=== PATIENT | male | born 2000 | race Caucasian/White ===

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

== ENCOUNTER 2022-05-09 15:49 | Emergency (ER) | payer OTHER, SELFPAY ==
--- NOTE | 2022-05-09 15:56 | ED.GENADULT ---
HPI - General Adult General Chief complaint: Chest Pain Stated complaint: Chest Pain Time Seen by Provider: 05/09/22 16:00 Source: patient, RN notes reviewed and old records reviewed Mode of arrival: ambulatory Limitations: no limitations History of Present Illness HPI narrative: 21-year-old male presents to the [facility] with intermittent traveling chest pain for the last week. Ibuprofen makes it better. denies any radiation pain. No nausea or vomiting. Denies pain pain is worse with movement times. Pain is reproducible with palpation the left sternal border Onset (ago): week(s) (1) Related Data Home Medications Medication Instructions Recorded Confirmed ibuprofen 200 mg tablet 200 mg PO Q6H PRN Pain 09/20/21 05/09/22 Allergies Allergy/AdvReac Type Severity Reaction Status Date / Time amoxicillin [From Augmentin] Allergy Hives Verified 05/09/22 16:06 clavulanic acid Allergy Hives Verified 05/09/22 16:06 [From Augmentin] Review of Systems Review of Systems: All systems reviewed & are unremarkable except as noted in HPI and below Constitutional: Constitutional: Reports no additional constitutional complaints Eyes: Eyes: Reports no additional eye complaints ENT: Reports system reviewed and no additional complaints, except as documented Cardiovascular: Cardiovascular: Reports as per HPI, Reports chest pain ( chest wall), Denies rapid heart rate, Denies radiating jaw, neck or arm pain, Denies dyspnea and Denies slow heart rate Respiratory: Respiratory: Reports no additional respiratory complaints, Denies chest congestion, Denies cough and Denies dyspnea Gastrointestinal: Gastrointestinal: Reports no additional gastrointestinal complaints, Denies abdominal pain, Denies nausea and Denies vomiting Musculoskeletal: Musculoskeletal: Reports no additional musculoskeletal complaints Integumentary/Breasts: Skin/Breast: Reports system reviewed and no additional complaints, except as docu Neurologic: Reports system reviewed and no additional complaints, except as documented Psychiatric: Psychiatric: Reports no additional psychiatric complaints Allergic/Immunologic: Allergic/Immunologic: Reports no additional allergic/immunologic complaints PMFSH Past Medical History Medical History Anxiety Anxiety Depressed GERD (gastroesophageal reflux disease) Surgical History Surgical History History of tonsillectomy Family History Family History Father Alcohol abuse Depression Anxiety Mother Alcohol abuse Depression Anxiety Sibling Asthma Anxiety Depression Grandparent Diabetes mellitus Heart disease Social History Social History Smoking status: Never smoker Alcohol intake: current Drinks per week: 4 Alcohol use details: shots a week Substance use: current Substance use type: marijuana Living arrangements: with family Occupation/Education: occupation Additional occupation/education comments: [employer] Gender identity (if verbalized by the patient): Male Sexual Orientation (if Verbalized by the Patient): Straight or Heterosexual Agree to blood products: Yes Comments At the time of my signature, I reviewed and agree with the nursing past medical, surgical, social, and family history. There is no relevant family history pertinent to the patient complaint. Exam Const: General: cooperative, healthy appearing, comfortable, no acute distress, well developed, alert and well nourished Nutritional Appearance: well nourished Orientation/consciousness: patient oriented x3 Limitations: no limitations HENMT: Head: normal to inspection Ears: hearing grossly normal bilaterally and external ears normal Face/Nose/Sinus: Normal external nose present, Normal nares pr
[2022-05-09 15:57] VITALS: BP 149/70; PULSE 81; RESP 16; TEMP 36.7; O2SAT 100
== END 2022-05-09 16:15 | disposition home or self-care (01) ==
PROVIDERS: Emergency Provider Nurse Practitioner; PCP Family Medicine
DX: M94.0 Chondrocostal junction syndrome [Tietze] (principal); F12.90 Cannabis use, unspecified, uncomplicated; K21.9 Gastro-esophageal reflux disease without esophagitis
CPT/HCPCS: 99213; G0463

== ENCOUNTER 2022-12-05 14:53 | Emergency (ER) | payer OTHER, SELFPAY ==
[2022-12-05 15:06] VITALS: BP 154/87; PULSE 114; RESP 19; TEMP 37.1; O2SAT 100
--- NOTE | 2022-12-05 15:37 | ED.DENTAL ---
HPI - Dental/Oral General Chief complaint: Dental/Oral Stated complaint: dental pain Time Seen by Provider: 12/05/22 15:08 History of Present Illness HPI Narrative: Patient is a 22-year-old male who presents ER with dental abscess. Developing last couple days. Ruptured yesterday and had bad taste in his mouth. Has been treating pain with marijuana today and has become more anxious. No facial swelling. No fevers or chills or sweats. No difficulty breathing or swallowing. Still has tenderness to his right upper mouth near tooth #4. Related Data Home Medications Medication Instructions Recorded Confirmed ibuprofen 200 mg tablet 200 mg PO Q6H PRN Pain 09/20/21 05/09/22 Allergies Allergy/AdvReac Type Severity Reaction Status Date / Time amoxicillin [From Augmentin] Allergy Hives Verified 12/05/22 15:08 clavulanic acid Allergy Hives Verified 12/05/22 15:08 [From Augmentin] Review of Systems Constitutional: Constitutional: Denies chills and Denies fever(s) ENT: Denies dysphagia and Denies sore throat Comments: + Dental pain PMFSH Past Medical History Medical History Anxiety Anxiety Depressed GERD (gastroesophageal reflux disease) Surgical History Surgical History History of tonsillectomy Family History Family History Father Alcohol abuse Depression Anxiety Mother Alcohol abuse Depression Anxiety Sibling Asthma Anxiety Depression Grandparent Diabetes mellitus Heart disease Social History Social History Smoking status: Never smoker Alcohol intake: current Drinks per week: 4 Alcohol use details: shots a week Substance use: current Substance use type: marijuana Living arrangements: with family Occupation/Education: occupation Additional occupation/education comments: [employer] Gender identity (if verbalized by the patient): Male Sexual Orientation (if Verbalized by the Patient): Straight or Heterosexual Agree to blood products: Yes Exam Narrative: GENERAL: Well-appearing, well-nourished, and in no acute distress. HEAD: Normocephalic, atraumatic. ENT: Mucous membranes moist. No fluctuant abscess in mouth but tenderness and fullness noted near tooth #4 normal posterior oropharynx. HEART: Tachycardic and regular. Normal peripheral pulses. EXTREMITIES: Normal range of motion. No edema. NEURO: Alert and oriented x3. PSYCH: Normal mood and affect. Course Course Emergency Course: Patient with Augmentin allergy, will place on clindamycin. Recommend follow-up with dentist. Vital Signs Vital signs: Vital Signs Temperature 98.8 F 12/05/22 15:06 Pulse Rate 114 H 12/05/22 15:06 Respiratory Rate 19 12/05/22 15:06 Blood Pressure 154/87 H 12/05/22 15:06 Pulse Oximetry 100 12/05/22 15:06 Temperature 98.8 F 12/05/22 15:06 Pulse Rate 114 H 12/05/22 15:06 Respiratory Rate 19 12/05/22 15:06 Blood Pressure 154/87 H 12/05/22 15:06 Pulse Oximetry 100 12/05/22 15:06 Discharge Plan Discharge Clinical Impression: Abscess, dental Patient Disposition: Home, Self-Care Condition: Stable Instructions: Antibiotic Form, Dental Abscess (ED) Additional Instructions: Return the ER if you have fever over 100.4 ?F, you cannot breathe, cannot swallow, you cannot keep down food/water/medication, you have additional concerns. Follow up with a dentist. Take tylenol or ibuprofen for pain. Prescriptions: New clindamycin HCl 150 mg capsule 450 mg PO Q6H 7 Days Qty: 84 0RF No Action ibuprofen 600 mg tablet 600 mg PO TID PRN (Reason: fever or pain) Qty: 30 0RF ibuprofen 200 mg tablet 200 mg PO Q6H PRN (Reason: Pain) Follow-up/Referrals: Rosmery Wang MD [Primary Care Provid
== END 2022-12-05 16:17 | disposition home or self-care (01) ==
PROVIDERS: Emergency Provider Emergency Medicine; PCP Family Medicine
DX: K04.7 Periapical abscess without sinus (principal); F41.9 Anxiety disorder, unspecified; F32.A Depression, unspecified; K21.9 Gastro-esophageal reflux disease without esophagitis
CPT/HCPCS: 99283

== ENCOUNTER 2023-01-30 17:50 | Emergency (ER) | payer OTHER, SELFPAY ==
--- NOTE | ~2023-01-30 | CT_ITS ---
EXAMINATION: CT abdomen pelvis w con DATE: 01/31/2023 00:46 INDICATION: Left lower quadrant and periumbilical abdominal pain. TECHNIQUE: Computed tomography (CT) of the abdomen and pelvis was performed with 100 mL Omnipaque 350 intravenous contrast. Automated exposure control and iterative reconstruction technique were employe d. The dose-length product was 635.31 mGy-cm. COMPARISON: None. FINDINGS: The visualized portions of the lung bases are clear without pneumonia or pleural effusion. The heart size is normal. No pericardial effusion. The liver, spleen, gallbladder, pancreas, adrenal glands, and kidneys are normal. The appendix measures 8 mm in diameter at its base and 5 mm at its ti p. No adjacent fat stranding. There are no pathologically enlarged lymph nodes. There is no free intr aperitoneal fluid. There is mild lumbar spondylosis. IMPRESSION: 1. Appendiceal diameter of 8 mm, which is indeterminate for appendicitis. Reviewed, dictated and finalized at location E.
[2023-01-30 18:05] VITALS: BP 129/85; PULSE 74; RESP 16; TEMP 36.5; O2SAT 98
--- NOTE | 2023-01-30 18:08 | ED.GENADULT ---
HPI - General Adult General Chief complaint: Abdominal Pain <Colleen Klein CLIENT CARE CONSULTANT - Last Filed: 01/30/23 18:10> Stated complaint: diffuse abd pain <Colleen Gonsales August CLIENT CARE CONSULTANT - Last Filed: 01/30/23 18:10> Time Seen by Provider: 01/30/23 23:42 <Colleen Gonsales August CLIENT CARE CONSULTANT - Last Filed: 01/30/23 18:10> History of Present Illness HPI narrative: Silverio Wood is a 22 y/o male without any known PMhx who presents with complaints of having right lower abdominal pain yesterday and it improved with Pepto and pantoprazole. He got up today and started to have mid to left lower abdominal pain that seems to have become much worse today. Denies any nausea/vomiting/ able to eat and drink well today/ Last BM was 4 hours ago and was diarrhea. Denies fever/chills. <Colleen Gonsales August, CLIENT CARE CONSULTANT - Last Filed: 01/30/23 18:10> 22-year-old male reports for evaluation for abdominal pain that started yesterday.? Patient states he developed right-sided abdominal pain which resolved after taking Pepcid and Pepto-Bismol.? States today around 12:00, the pain returned but is not as periumbilical region and left lower quadrant.? He reports 3 episodes of soft stools today.? Denies fever, nausea or vomiting, chest pain or shortness of breath, dysuria or hematuria, flank pain.? Denies recent surgeries or hospitalizations, travel or camping.? He does state he was on clindamycin approximately 1 to 2 months ago for dental infection. <Abida Kingsley PA-C - Last Filed: 01/31/23 02:55> Related Data Home medications: Home Medications Medication Instructions Recorded Confirmed ibuprofen 200 mg tablet 200 mg PO Q6H PRN Pain 09/20/21 05/09/22 <Colleen Klein, CLIENT CARE CONSULTANT - Last Filed: 01/30/23 18:10> Allergies/adverse reactions: Allergies Allergy/AdvReac Type Severity Reaction Status Date / Time amoxicillin [From Augmentin] Allergy Hives Verified 12/05/22 15:08 clavulanic acid Allergy Hives Verified 12/05/22 15:08 [From Augmentin] <Colleen Klein CLIENT CARE CONSULTANT - Last Filed: 01/30/23 18:10> Review of Systems Review of Systems: CONSTITUTIONAL: Denies fever, chills EYES: Denies visual changes, redness, or discharge. ENT: Denies rhinorrhea, congestion, sore throat, or otalgia. CARDIOVASCULAR: Denies chest pain, palpitations, or edema. RESPIRATORY: Denies cough or dyspnea. GASTROINTESTINAL: See HPI GENITOURINARY: Denies dysuria or hematuria. SKIN: Denies rash or itching. MUSCULOSKELETAL: Denies back pain, joint pain, or myalgia. NEUROLOGIC: Denies headache, numbness, dizziness, or weakness. PSYCHIATRIC: Denies anxiety or depression. <Abida Kingsley PA-C - Last Filed: 01/31/23 02:55> [facility] Past Medical History Medical History: Medical History Anxiety Anxiety Depressed GERD (gastroesophageal reflux disease) <Colleen Klein, CLIENT CARE CONSULTANT - Last Filed: 01/30/23 18:10> Surgical History Surgical History: Surgical History History of tonsillectomy <Colleen Klein CLIENT CARE CONSULTANT - Last Filed: 01/30/23 18:10> Family History Family History: Family History Father Alcohol abuse Depression Anxiety Mother Alcohol abuse Depression Anxiety Sibling Asthma Anxiety Depression Grandparent Diabetes mellitus Heart disease <Colleen Klein, CLIENT CARE CONSULTANT - Last Filed: 01/30/23 18:10> Social History Social History: Social History Smoking status: Never smoker Alcohol intake: current Drinks per week: 4 Alcohol use details: shots a week Substance use: current Substance use type: marijuana Living arrangements: with family Occupation/Education: occupation Additional occupation/education comments: [employer] Gender identity (if verbalized by the patient): Male Sexual Orientation (if Verbalized by the Patient): Straight or
[2023-01-30 18:27] LABS: Basophils Absolute Auto 0.1 K/mm3 (0.0-0.1); Basophils Percent Auto 0.6 % (0.2-1.2); Eosinophils Absolute Auto 0.3 K/mm3 (0-0.3); Eosinophils Percent Auto 3.4 % (0-4.4); Hematocrit 48.7 % (42.0-52.0); Hemoglobin 16.9 g/dL (14.0-18.0); Immature Granulocyte Absolute 0.03 K/mm3 (0.00-0.031); Immature Granulocyte Percent A 0.4 % (0-0.5); Lymphocytes Absolute Auto 1.49 K/mm3 (0.9-3.2); Lymphocytes Percent Auto 18.2 % (18.3-44.2); Mean Corpuscular HGB Conc 34.7 g/dl (32-36); Mean Corpuscular Hemoglobin 29.4 pg (26-34); Mean Corpuscular Volume 84.8 fl (80-100); Mean Platelet Volume 9.4 fl (7.4-10.4); Monocytes Absolute Auto 0.7 K/mm3 (0.1-0.6); Monocytes Percent Auto 8.4 % (2.6-8.5); Neutrophils Absolute Auto 5.6 K/mm3 (1.3-6.7); Platelet Count Result 286 k/mm3 (150-375); Red Blood Count 5.74 M/mm3 (4.6-6.20); Red Cell Distribution Width 11.9 % (11.5-14.5); White Blood Count 8.2 K/mm3 (4.5-10.0)
[2023-01-30 18:39] LABS: Alanine Aminotransferase 30 U/L (6-50); Albumin Level 5.1 g/dL (3.5-5.1); Alkaline Phosphatase 73 U/L (38-126); Anion Gap 7 mmol/L (8-16); Aspartate Amino Transferase 29 U/L (17-59); Bilirubin,Total 0.9 mg/dL (0.2-1.3); Blood Urea Nitrogen 10 mg/dL (9-20); Calcium 9.9 mg/dL (8.4-10.2); Carbon Dioxide 29 mmol/L (22-30); Chloride 103 mmol/L (98-107); Estimated CRCL calculation 167 ml/min; Estimated Glomerular Filt Rate > 60; Glucose 94 mg/dL (65-110); Potassium 3.8 mmol/L (3.4-5.0); Sodium 139 mmol/L (137-145)
[2023-01-30 23:49] VITALS: BP 148/86; PULSE 76; RESP 16; O2SAT 100
--- NOTE | 2023-01-30 23:58 | ED.ABDPAIN ---
HPI - Abdominal Pain General Chief Complaint: Abdominal Pain Stated Complaint: diffuse abd pain Time Seen by Provider: 01/30/23 23:42 History of Present Illness HPI narrative: 22-year-old male reports for evaluation for abdominal pain that started yesterday. Patient states he developed right-sided abdominal pain which resolved after taking Pepcid and Pepto-Bismol. States today around 12:00, the pain returned but is not as periumbilical region and left lower quadrant. He reports 3 episodes of soft stools today. Denies fever, nausea or vomiting, chest pain or shortness of breath, dysuria or hematuria, flank pain. Denies recent surgeries or hospitalizations, travel or camping. He does state he was on clindamycin approximately 1 to 2 months ago for dental infection. Related Data Home Medications Medication Instructions Recorded Confirmed ibuprofen 200 mg tablet 200 mg PO Q6H PRN Pain 09/20/21 05/09/22 Allergies Allergy/AdvReac Type Severity Reaction Status Date / Time amoxicillin [From Augmentin] Allergy Hives Verified 12/05/22 15:08 clavulanic acid Allergy Hives Verified 12/05/22 15:08 [From Augmentin] Review of Systems Review of Systems: CONSTITUTIONAL: Denies fever, chills EYES: Denies visual changes, redness, or discharge. ENT: Denies rhinorrhea, congestion, sore throat, or otalgia. CARDIOVASCULAR: Denies chest pain, palpitations, or edema. RESPIRATORY: Denies cough or dyspnea. GASTROINTESTINAL: See HPI GENITOURINARY: Denies dysuria or hematuria. SKIN: Denies rash or itching. MUSCULOSKELETAL: Denies back pain, joint pain, or myalgia. NEUROLOGIC: Denies headache, numbness, dizziness, or weakness. PSYCHIATRIC: Denies anxiety or depression. [facility] Past Medical History Medical History Anxiety Anxiety Depressed GERD (gastroesophageal reflux disease) Surgical History Surgical History History of tonsillectomy Family History Family History Father Alcohol abuse Depression Anxiety Mother Alcohol abuse Depression Anxiety Sibling Asthma Anxiety Depression Grandparent Diabetes mellitus Heart disease Social History Social History Smoking status: Never smoker Alcohol intake: current Drinks per week: 4 Alcohol use details: shots a week Substance use: current Substance use type: marijuana Living arrangements: with family Occupation/Education: occupation Additional occupation/education comments: [employer] Gender identity (if verbalized by the patient): Male Sexual Orientation (if Verbalized by the Patient): Straight or Heterosexual Agree to blood products: Yes Exam Narrative: GENERAL: Well-appearing, in no acute distress. Patient resting comfortably in exam bed. He is pleasant and conversational. HEAD: Normocephalic EYES: PERRLA ENT: Nares clear. Mucous membranes moist. Oropharynx without tonsillar hypertrophy exudate or other lesions. NECK: Supple. CHEST: No respiratory distress. Clear to auscultation, no adventitious breath sounds. HEART: Regular rate and rhythm. No murmur heard. Normal peripheral pulses. ABDOMEN: Normal active bowel sounds. Abdomen soft with tenderness in the periumbilical region and left lower quadrant. No rebound, guarding or rigidity. No overlying skin changes. No CVA tenderness. EXTREMITIES: Normal range of motion. No edema. SKIN: Warm, dry, no rash. NEURO: No focal deficits. Alert and oriented x3. PSYCH: Normal mood and affect. Course Vital Signs Vital signs: Vital Signs Temperature 97.7 F 01/30/23 18:05 Pulse Rate 74 01/30/23 18:05 Respiratory Rate 16 01/30/23 18:05 Blood Pressure 129/85 01/30/23 18:05 Pulse Oximetry 98 01/30/23 18:05 Temperature 97.7 F 01/30/23 18
[2023-01-31] MEDS: KETOROLAC 30 MG/ML VIAL (*BKC) IV PUSH (00:57)
[2023-01-31] MEDS: SODIUM CHLORIDE 0.9% IV 1,000 ML 999 ML IV CONT (00:57)
[2023-01-31] MEDS: ONDANSETRON INJ 4 MG/2 ML VIAL IV PUSH (00:57)
[2023-01-31 01:01] LABS: Appearance Urine Clear (Clear); Bilirubin Urine Negative (Negative); Blood Urine Negative (Negative); Color Urine Yellow (Yellow); Glucose Urine UA Negative (Negative); Ketones Urine Negative (Negative); Leukocyte Esterase Ur Negative LEU/UL (Negative); Nitrate Urine Negative (Negative); Protein Urine Negative (Negative); Specific Grav Ur 1.023 (1.001-1.035); pH Urine 5.5 (5.0-9.0)
[2023-01-31 01:11] LABS: Lipase 56 U/L (23-300)
[2023-01-31 01:35] LABS: Add Urine Microscopic? NO
[2023-01-31 02:22] VITALS: BP 128/70; PULSE 62; RESP 16; O2SAT 99
[2023-01-31 04:12] VITALS: BP 129/66; PULSE 66; RESP 14; O2SAT 100
[2023-01-31 06:01] VITALS: BP 129/75; PULSE 54; RESP 16; O2SAT 100
[2023-01-31 07:15] VITALS: BP 123/70; PULSE 65; RESP 16; O2SAT 100
== END 2023-01-31 07:17 | disposition home or self-care (01) ==
PROVIDERS: Nurse Practitioner Family; Emergency Provider Physician Assistant; PCP Family Medicine
DX: R10.32 Left lower quadrant pain (principal); K21.9 Gastro-esophageal reflux disease without esophagitis
CPT/HCPCS: 36415; 74177; 80053; 81003; 83605; 83690; 85025; 96361; 96374; 99284; J1885; J2405; J7030; Q9967